=== PATIENT | female | born 1980 | race Caucasian/White ===

== ENCOUNTER 2016-09-10 22:52 | Emergency (ER) | payer MEDICARE, MEDICAID ==
[~2016-09-10] VITALS: Ht 152.4 cm; Wt 77.3 kg
[~2016-09-10 22:52] MED LIST: /MIRT15TA OR; CETI10TA OR; FOLI1TAB OR; IBUP80TA PO; MULTIVIT PO; PAXI20TA OR; PRIL20CA OR; SING10TA31 OR; VITAPRTA PO; [UNRECOGNIZED DRUG - OTHER]
[2016-09-10] MEDS ORDERED: VENL75CA47 (23:24)
[2016-09-10] MEDS ORDERED: PANT40TA2 (23:24)
[2016-09-11] MEDS ORDERED: DERMABOND TOPICAL SKIN ADHESIVE TOP ONE (01:30)
[2016-09-11] MEDS ORDERED: TETANUS/DIPHTHERIA TOX ADSORB ADULT 0.5ML SYR/VIAL (90714) IM ONE (01:30)
[2016-09-11 02:07] VITALS: BP 118/52
== END 2016-09-11 02:08 | disposition home or self-care (01) ==
LOC: M ED 09-11 00:23
DX: S61.214A Laceration without foreign body of right ring finger without damage to nail, initial encounter (principal); X58.XXXA Exposure to other specified factors, initial encounter; Y92.89 Other specified places as the place of occurrence of the external cause; Y93.89 Activity, other specified; Y99.8 Other external cause status; K21.9 Gastro-esophageal reflux disease without esophagitis; F33.9 Major depressive disorder, recurrent, unspecified; Z87.442 Personal history of urinary calculi

== ENCOUNTER → 2016-10-12 | Outpatient (CLI) | payer MEDICARE, MEDICAID ==
[~2016-10-12] MED LIST changes: +PANT40TA2; +VENL75CA47
[2016-10-12 14:43] LABS: MEAN CORPUSCULAR HEMOGLOBIN 31.3 pg (27.0-33.0); WHITE BLOOD COUNT 5.3 K/mm3 (4.0-10.0)
--- NOTE | 2016-10-12 14:44 | REP ---
Clinical: Lower back pain . Technique: AP, lateral, bilateral oblique, and coned-down views. Findings: Alignment and lordosis is maintained and stable. The vertebral bodies including transverse process and spinous processes are intact and stable. Mild compression deformity at L2 is unchanged. There is no evidence for acute fracture / compression injury or subluxation. No evidence for spondylolysis or spondylolisthesis. Impression: Stable examination. Mild old compression deformity along the superior endplate of L2 is unchanged compared to 2003. Otherwise relatively normal age appropriate examination. Signed by Galo Quinones MD 10/12/2016 02:37 P
[2016-10-12 15:17] LABS: VITAMIN B12 LEVEL 280 PG/ML (247-911)
[2016-10-12 16:06] LABS: ALBUMIN 3.9 GM/DL (3.2-5.2); ALBUMIN/GLOBULIN RATIO 1.03 (1.00-1.93); ALKALINE PHOSPHATASE 65 U/L (45-117); ALT/SGPT 15 U/L (12-78); ANION GAP 8 MEQ/L (8-16); AST/SGOT 42 U/L (15-37); BILIRUBIN,TOTAL 0.8 MG/DL (0.2-1.0); BLOOD UREA NITROGEN 12 MG/DL (7-18); CALCIUM LEVEL 8.7 MG/DL (8.5-10.1); CARBON DIOXIDE LEVEL 23 MEQ/L (21-32); CHLORIDE LEVEL 108 MEQ/L (98-107); CHOLESTEROL LEVEL 171 MG/DL (<200); CREATININE FOR GFR 0.82 MG/DL (0.55-1.02); GLOMERULAR FILTRATION RATE > 60.0 (>60); GLUCOSE, FASTING 96 MG/DL (70-105); POTASSIUM SERUM 4.1 MEQ/L (3.5-5.1); SODIUM LEVEL 139 MEQ/L (136-145); TOTAL PROTEIN 7.7 GM/DL (6.4-8.2); TRIGLYCERIDES LEVEL 62 MG/DL (<150)
== END ==
LOC: M LAB 14:03
PROVIDERS: ATTEND Nurse Practitioner Family
DX: M54.5 Low back pain (principal); E78.00 Pure hypercholesterolemia, unspecified; R53.83 Other fatigue; D64.9 Anemia, unspecified

== ENCOUNTER → 2016-11-30 | Outpatient (CLI) | payer MEDICARE, MEDICAID ==
[2016-11-30 17:39] LABS: ALBUMIN 3.6 GM/DL (3.2-5.2); ALBUMIN/GLOBULIN RATIO 0.97 (1.00-1.93); ALKALINE PHOSPHATASE 56 U/L (45-117); ALT/SGPT 11 U/L (12-78); ANION GAP 9 MEQ/L (8-16); AST/SGOT 9 U/L (15-37); BILIRUBIN,TOTAL 0.6 MG/DL (0.2-1.0); BLOOD UREA NITROGEN 7 MG/DL (7-18); CARBON DIOXIDE LEVEL 25 MEQ/L (21-32); CHLORIDE LEVEL 110 MEQ/L (98-107); CREATININE FOR GFR 0.88 MG/DL (0.55-1.02); GLOMERULAR FILTRATION RATE > 60.0 (>60); GLUCOSE, FASTING 99 MG/DL (70-105); POTASSIUM SERUM 3.9 MEQ/L (3.5-5.1); SODIUM LEVEL 144 MEQ/L (136-145); TOTAL PROTEIN 7.3 GM/DL (6.4-8.2)
[2016-11-30 17:45] LABS: VITAMIN B12 LEVEL 716 PG/ML (247-911)
[2016-11-30 18:12] LABS: MEAN CORPUSCULAR HEMOGLOBIN 31.2 pg (27.0-33.0); MEAN CORPUSCULAR HGB CONC 33.9 g/dl (32.0-36.5); MEAN CORPUSCULAR VOLUME 92.1 fl (80.0-96.0); RED CELL DISTRIBUTION WIDTH 12.6 % (11.5-14.5); WHITE BLOOD COUNT 5.9 K/mm3 (4.0-10.0)
== END ==
LOC: M LAB 16:12
PROVIDERS: ATTEND Internal Medicine Cardiovascular Disease
DX: D64.9 Anemia, unspecified (principal)

== ENCOUNTER → 2016-12-13 | Outpatient (RCR) | payer MEDICARE, MEDICAID | END | disposition home or self-care (01) | LOC: M PT 11-27 12:19 | PROVIDERS: ATTEND Nurse Practitioner Family | DX: Z51.89 Encounter for other specified aftercare (principal); M54.5 Low back pain; M54.6 Pain in thoracic spine; Z87.312 Personal history of (healed) stress fracture | CPT/HCPCS: 97110; 97140; 97161; G8978; G8979 ==

== ENCOUNTER → 2017-01-29 | Outpatient (REF) | payer MEDICARE, MEDICAID ==
[2017-01-29 14:22] LABS: BASO # 0.1 10^3/uL (0.0-0.2); BASO % 0.9 % (0.0-1.0); EOS # 0.3 10^3/uL (0.0-0.50); EOS % 5.1 % (0.0-3.0); IMMATURE GRANULOCYTE % 0.3 % (0-0); LYMPH # 2.8 10^3/uL (1.5-4.5); LYMPH % 43.9 % (24.0-44.0); MEAN CORPUSCULAR HEMOGLOBIN 30.4 pg (27.0-33.0); MEAN CORPUSCULAR HGB CONC 32.7 g/dl (32.0-36.5); MEAN CORPUSCULAR VOLUME 92.8 fl (80.0-96.0); MONO # 0.5 10^3/uL (0.0-0.8); MONO % 7.8 % (0.0-5.0); NEUTROPHILS # 2.7 10^3/uL (1.8-7.7); PLATELET COUNT, AUTOMATED 118 10^3/uL (150-450); RED CELL DISTRIBUTION WIDTH 13.2 % (11.5-14.5); WHITE BLOOD COUNT 6.4 10^3/uL (4.0-10.0)
[2017-01-29 14:50] LABS: ALBUMIN 3.7 GM/DL (3.2-5.2); ALKALINE PHOSPHATASE 57 U/L (45-117); ALT/SGPT 17 U/L (12-78); ANION GAP 10 MEQ/L (8-16); AST/SGOT 11 U/L (15-37); BILIRUBIN,TOTAL 0.6 MG/DL (0.2-1.0); BLOOD UREA NITROGEN 10 MG/DL (7-18); CALCIUM LEVEL 8.7 MG/DL (8.5-10.1); CARBON DIOXIDE LEVEL 22 MEQ/L (21-32); CHLORIDE LEVEL 108 MEQ/L (98-107); CREATININE FOR GFR 0.85 MG/DL (0.55-1.02); GLOMERULAR FILTRATION RATE > 60.0 (>60); GLUCOSE, FASTING 103 MG/DL (70-105); POTASSIUM SERUM 3.8 MEQ/L (3.5-5.1); SODIUM LEVEL 140 MEQ/L (136-145); TOTAL PROTEIN 7.4 GM/DL (6.4-8.2)
[2017-01-29 14:56] LABS: ERYTHROCYTE SEDIMENTATION RATE 34 mm/hr (0-20)
== END ==
LOC: M LABNEURO 10:26
PROVIDERS: ATTEND Psychiatry & Neurology Neurology
DX: R51 Headache (principal); Z79.899 Other long term (current) drug therapy

== ENCOUNTER 2017-05-12 20:11 | Emergency (ER) | payer MEDICARE, MEDICAID ==
[2017-05-12] MEDS: NORCO, ANEXSIA 5/325MG TABLET (HYDROcodone/ACETAMINOPHEN) PO (22:07)
[2017-05-12] MEDS: CLINDAMYCIN 150 MG CAP PO (22:07)
== END 2017-05-12 22:11 | disposition home or self-care (01) ==
LOC: M ED 20:11
DX: K04.7 Periapical abscess without sinus (principal); F41.9 Anxiety disorder, unspecified; F33.9 Major depressive disorder, recurrent, unspecified; K21.9 Gastro-esophageal reflux disease without esophagitis; M54.9 Dorsalgia, unspecified; Z79.899 Other long term (current) drug therapy; F17.210 Nicotine dependence, cigarettes, uncomplicated
CPT/HCPCS: 99282

== ENCOUNTER → 2018-06-13 | Outpatient (CLI) | payer MEDICARE, MEDICAID ==
[~2018-06-13] MED LIST changes: +CLEO300C2 PO; +NORCOTAB PO; -PANT40TA2; +PANT40TA3
[2018-06-13 11:00] LABS: BASO # 0.1 10^3/uL (0.0-0.2); BASO % 1.1 % (0.0-1.0); EOS # 0.4 10^3/uL (0.0-0.50); HEMOGLOBIN 12.8 g/dl (12.0-15.5); LYMPH # 2.5 10^3/uL (1.5-4.5); LYMPH % 36.4 % (24.0-44.0); MEAN CORPUSCULAR HEMOGLOBIN 31.2 pg (27.0-33.0); MEAN CORPUSCULAR HGB CONC 32.8 g/dl (32.0-36.5); MEAN CORPUSCULAR VOLUME 95.1 fl (80.0-96.0); MONO # 0.6 10^3/uL (0.0-0.8); MONO % 8.2 % (0.0-5.0); NEUTROPHILS # 3.4 10^3/uL (1.8-7.7); PLATELET COUNT, AUTOMATED 108 10^3/uL (150-450)
[2018-06-13 11:38] LABS: ALT/SGPT 16 U/L (12-78); BILIRUBIN,TOTAL 1.2 MG/DL (0.2-1.0); BLOOD UREA NITROGEN 13 MG/DL (7-18); CALCIUM LEVEL 8.5 MG/DL (8.5-10.1); CARBON DIOXIDE LEVEL 24 MEQ/L (21-32); CHLORIDE LEVEL 107 MEQ/L (98-107); CHOLESTEROL LEVEL 118 MG/DL (<200); CHOLESTEROL RISK RATIO 2.408 (<5); CREATININE FOR GFR 0.74 MG/DL (0.55-1.30); FREE T4 0.98 NG/DL (0.76-1.46); GLOMERULAR FILTRATION RATE > 60.0 (>60); GLUCOSE, FASTING 108 MG/DL (70-100); HDL CHOLESTEROL 49 MG/DL (>40); LDL CHOLESTEROL 51 MG/DL (<100); NON-HDL-C 69 MG/DL; SODIUM LEVEL 139 MEQ/L (136-145); TOTAL 25(OH) VITAMIN D 11.4 NG/ML (30.0-100.0); TOTAL PROTEIN 7.7 GM/DL (6.4-8.2); TRIGLYCERIDES LEVEL 88 MG/DL (<150); VITAMIN B12 LEVEL 482 PG/ML (247-911)
== END ==
LOC: M LAB 10:29
PROVIDERS: ATTEND Physician Assistant Medical
DX: R53.83 Other fatigue (principal); I10 Essential (primary) hypertension; E03.9 Hypothyroidism, unspecified; E78.2 Mixed hyperlipidemia

== ENCOUNTER 2020-01-18 20:45 | Emergency (ER) | payer MEDICARE, MEDICAID ==
[~2020-01-18] VITALS: Ht 152.4 cm; Wt 62.4 kg
[~2020-01-18 20:45] MED LIST changes: -/MIRT15TA OR; +HYDR-3715 PO; +MIRT1TAB20 OR; -NORCOTAB PO; +PANT40TA29; -PANT40TA3
[2020-01-18] MEDS ORDERED: ATOR40TA75 (20:56)
[2020-01-18] MEDS ORDERED: ZOFR4TAB16 PO (20:56)
[2020-01-18 21:34] LABS: BASO # 0.1 10^3/uL (0.0-0.2); BASO % 0.7 % (0.0-1.0); EOS # 0.1 10^3/uL (0.0-0.5); EOS % 0.7 % (0.0-3.0); HEMATOCRIT 40.9 % (36.0-47.0); HEMOGLOBIN 13.5 g/dl (12.0-15.5); LYMPH # 2.3 10^3/uL (1.5-5.0); LYMPH % 26.8 % (24.0-44.0); MEAN CORPUSCULAR HEMOGLOBIN 31.6 pg (27.0-33.0); MEAN CORPUSCULAR VOLUME 95.8 fl (80.0-96.0); MONO # 0.6 10^3/uL (0.0-0.8); MONO % 6.6 % (0.0-5.0); NEUTROPHILS # 5.6 10^3/uL (1.5-8.5); RED BLOOD COUNT 4.27 10^6/uL (4.00-5.40); WHITE BLOOD COUNT 8.6 10^3/uL (4.0-10.0)
[2020-01-18 21:35] LABS: PLATELET COUNT, AUTOMATED 97 10^3/uL (150-450)
[2020-01-18 21:58] LABS: ALBUMIN 3.8 GM/DL (3.2-5.2); ALT/SGPT 12 U/L (12-78); BILIRUBIN,DIRECT 0.2 MG/DL (0.0-0.2); BILIRUBIN,TOTAL 0.8 MG/DL (0.2-1.0); LIPASE 84 U/L (73-393); TOTAL PROTEIN 7.5 GM/DL (6.4-8.2)
[2020-01-19] MEDS ORDERED: GI COCKTAIL 50ML BTL(HYOSCYAMINE/MAALOX/LIDOCAINE VISCOUS)(1:3:1) PO ONE (00:15)
[2020-01-19 01:18] LABS: BLOOD UREA NITROGEN 6 MG/DL (7-18); CREATININE FOR GFR 0.75 MG/DL (0.55-1.30); GLOMERULAR FILTRATION RATE > 60.0 (>58)
[2020-01-19] MEDS ORDERED: ISOVUE-370 76% 100ML VIAL As Ordered ONE (02:04)
--- NOTE | 2020-01-19 03:12 | REPVR ---
PROCEDURE INFORMATION: Exam: CT Abdomen and Pelvis with Contrast Exam date and time: 01/19/20 (2:16am) Age: 39 years old Clinical indication: Generalized abdominal pain and vomiting. History of PUD. TECHNIQUE: Imaging protocol: Computed tomography of the abdomen and pelvis with intravenous contrast. Radiation optimization: All CT scans at this facility use at least one of these dose optimization techniques: automated exposure control; mA and/or kV adjustment per patient size (includes targeted exams where dose is matched to clinical indication); or iterative reconstruction. Contrast material: Isovue 370 Contrast volume: 100 ml Contrast route: IV COMPARISON: CT ABDOMEN PELVIS of 02/15/14 FINDINGS: Liver: Normal. No solid mass. Gallbladder and bile ducts: Distended gallbladder. Mildly thickened gallbladder wall. Minimal pericholecystic fluid likely. Central intrahepatic biliary dilatation. Dilated CBD (7 mm diameter). Pancreas: Normal. No ductal dilatation. Spleen: Normal. No splenomegaly. Adrenals: Normal. No mass. Kidneys and ureters: Normal. No hydronephrosis. Stomach and bowel: Unremarkable. No bowel obstruction. No mucosal thickening. Appendix: A normal appendix is visualized. Intraperitoneal space: Unremarkable. No free air. No significant fluid collection. Vasculature: Unremarkable. No abdominal aortic aneurysm. Lymph nodes: Unremarkable. No enlarged lymph nodes. Urinary bladder: Unremarkable as visualized. Reproductive: Fluid in the uterine cavity. Left ovarian cyst (2.2 cm size). Bilateral tubal ligation clips. Bones/joints: Unremarkable. No acute fracture. Soft tissues: Unremarkable. IMPRESSION: Possible acute cholecystitis. Distended gallbladder, with mildly thickened wall. Minimal pericholecystic fluid likely. Intra- and extrahepatic biliary dilatation. Needs correlation. Can do ultrasound for follow-up evaluation, as felt warranted. No acute bowel pathology. No bowel obstruction. No free air. Left ovarian cyst (2.2 cm size). Bilateral tubal ligation clips. Electronically signed by: Jenny Mo On 01/19/2020 03:11:42 AM
--- NOTE | 2020-01-19 04:36 | REPVR ---
PROCEDURE INFORMATION: Exam: US Abdomen, Limited; Right Upper Quadrant Exam date and time: 01/19/2020 4:23 AM Age: 39 years old Clinical indication: Abdominal pain; Epigastric; Additional info: Abd pain, ? choley on CT TECHNIQUE: Imaging protocol: US abdomen. Real time ultrasound with image documentation. Limited exam focused on the right upper quadrant. COMPARISON: GALLBLADDER US 02/15/2014 1:03 PM FINDINGS: Liver: Normal. No masses. Gallbladder: Multiple large mole bile gallstones are seen. The gallbladder wall is mildly thickened measuring around 4 mm. Trace pericholecystic fluid. Common bile duct: The CBD is dilated measuring up to 1.1 cm. Pancreas: The pancreatic head is unremarkable. The body and the tail of the pancreas are obscured. Right kidney: The right kidney measures 11.5 x 5.0 x 4.1 cm. There is no focal renal mass, stone, cyst or hydronephrosis. IMPRESSION: 1. Gallstones with sonographic findings suspicious for cholecystitis. 2. Dilated CBD up to 1.1 cm. Correlation with bilirubin level and MRCP is suggested. Electronically signed by: Dayne William On 01/19/2020 04:35:19 AM
[2020-01-19] MEDS ORDERED: MORPHINE 4 MG/ML 1ML VIAL/SYRINGE (J2270) IV PRN (05:00)
[2020-01-19] MEDS ORDERED: ONDANSETRON 4MG/2ML VIAL IV ONE (05:00)
[2020-01-19] MEDS ORDERED: AUGM875T28 PO (06:06)
[2020-01-19 06:15] VITALS: BP 109/64
[2020-01-19] MEDS ORDERED: AUGMENTIN 875 MG TAB PO ONE (06:15)
--- NOTE | 2020-01-20 12:40 | ED PDOC ---
Post-Departure Follow-Up gb us faxed to dr tony and [facility] for fu Leanna Black MD Jan 20, 2020 12:40
--- NOTE | 2020-01-20 12:40 | ED PDOC ---
Post-Departure Follow-Up ct abd/p faxed also to caron burnham and dr. diaz for fu Leanna Black MD Jan 20, 2020 12:40
== END 2020-01-19 06:24 | disposition home or self-care (01) ==
LOC: M ED 20:45
DX: K80.50 Calculus of bile duct without cholangitis or cholecystitis without obstruction (principal); K21.9 Gastro-esophageal reflux disease without esophagitis; K59.00 Constipation, unspecified; Z87.11 Personal history of peptic ulcer disease; Z87.442 Personal history of urinary calculi; F17.200 Nicotine dependence, unspecified, uncomplicated; Z79.899 Other long term (current) drug therapy
CPT/HCPCS: 36415; 74177; 76705; 80047; 80076; 82565; 83690; 84520; 84702; 85025; 85049; 85055; 96374; 96375; 99285; J2270; J2405; Q9967

== ENCOUNTER 2020-03-02 09:13 | Emergency (ER) | payer MEDICARE, MEDICAID ==
[~2020-03-02] VITALS: Ht 152.4 cm; Wt 62.0 kg
[~2020-03-02 09:13] MED LIST changes: +ATOR40TA75 PO; +AUGM875T28 PO; -PANT40TA29; +PANT40TA29 PO; -VENL75CA47; +VENL75CA47 PO; +ZOFR4TAB16 PO
--- NOTE | 2020-03-02 10:54 | REP ---
INDICATION: hx of cholecystitis with RUQ pain. COMPARISON: 01/19/2020. TECHNIQUE: Real-time sonographic evaluation of right upper quadrant performed. FINDINGS: Multiple gallstones are again seen in the gallbladder as well as gallbladder sludge.. The gallbladder wall is mildly thickened up to 4 mm. There is dilatation of the common bile duct 12 mm. The liver demonstrates homogeneous echotexture with no gross mass. The pancreas demonstrates homogeneous echotexture with no gross mass. The right kidney demonstrates no hydronephrosis, with a normal size of 11.6 cm in length. There is mild right renal pelviectasis.No free fluid is seen. IMPRESSION: Multiple gallstones are again seen in the gallbladder with mild gallbladder wall thickening diffusely. Dilated common bile duct again noted. The findings may indicate cholecystitis. No free fluid. <Electronically signed by Colin Estrada > 03/02/20 [id number]
[2020-03-02 11:06] LABS: BASO # 0.1 10^3/uL (0.0-0.2); BASO % 1.3 % (0.0-1.0); EOS # 0.2 10^3/uL (0.0-0.5); EOS % 3.2 % (0.0-3.0); HEMATOCRIT 39.5 % (36.0-47.0); HEMOGLOBIN 12.6 g/dl (12.0-15.5); LYMPH # 1.8 10^3/uL (1.5-5.0); LYMPH % 25.8 % (24.0-44.0); MEAN CORPUSCULAR HGB CONC 31.9 g/dl (32.0-36.5); MEAN CORPUSCULAR VOLUME 97.3 fl (80.0-96.0); MONO # 0.6 10^3/uL (0.0-0.8); MONO % 7.9 % (0.0-5.0); NEUTROPHILS # 4.3 10^3/uL (1.5-8.5); NEUTROPHILS % 61.7 % (36.0-66.0); PLATELET COUNT, AUTOMATED 88 10^3/uL (150-450); RED BLOOD COUNT 4.06 10^6/uL (4.00-5.40); WHITE BLOOD COUNT 6.9 10^3/uL (4.0-10.0)
[2020-03-02 11:35] LABS: ALBUMIN 3.8 GM/DL (3.2-5.2); ALT/SGPT 13 U/L (12-78); BILIRUBIN,DIRECT 0.1 MG/DL (0.0-0.2); BILIRUBIN,TOTAL 0.5 MG/DL (0.2-1.0); BLOOD UREA NITROGEN 8 MG/DL (7-18); CALCIUM LEVEL 8.9 MG/DL (8.5-10.1); CARBON DIOXIDE LEVEL 27 MEQ/L (21-32); CHLORIDE LEVEL 109 MEQ/L (98-107); CREATININE FOR GFR 0.76 MG/DL (0.55-1.30); GLOMERULAR FILTRATION RATE > 60.0 (>58); GLUCOSE, FASTING 93 MG/DL (70-100); LIPASE 106 U/L (73-393); POTASSIUM SERUM 3.8 MEQ/L (3.5-5.1); SODIUM LEVEL 140 MEQ/L (136-145); TOTAL PROTEIN 8.1 GM/DL (6.4-8.2)
[2020-03-02] MEDS ORDERED: NS 1,000 ML IV ONE (12:00)
[2020-03-02] MEDS ORDERED: MORPHINE 4 MG/ML 1ML VIAL/SYRINGE (J2270) IV ONE (12:00)
[2020-03-02] MEDS ORDERED: ONDANSETRON 4MG/2ML VIAL IV ONE (12:00)
[2020-03-02 13:58] VITALS: BP 98/57
--- NOTE | 2020-03-05 06:38 | ED PDOC ---
Post-Departure Follow-Up gb us faxed to dr tony and [facility] for fu Leanna Black MD Mar 05, 2020 06:38
[2020-03-08] MEDS ORDERED: MAPA500T2 PO (11:09)
[2020-03-08] MEDS ORDERED: MULTCAP PO (11:09)
[2020-03-08] MEDS ORDERED: EXCETAB44 PO (11:09)
== END 2020-03-02 14:15 | disposition home or self-care (01) ==
LOC: M ED 09:13
DX: K80.20 Calculus of gallbladder without cholecystitis without obstruction (principal); D69.6 Thrombocytopenia, unspecified; E78.5 Hyperlipidemia, unspecified; F17.210 Nicotine dependence, cigarettes, uncomplicated; Z79.899 Other long term (current) drug therapy
CPT/HCPCS: 36415; 76705; 80048; 80076; 83690; 85025; 85049; 85055; 96374; 96375; 99284; J2270; J2405

== ENCOUNTER → 2020-03-17 | Outpatient (CLI) | payer MEDICARE, MEDICAID ==
[~2020-03-17] MED LIST changes: +EXCETAB44 PO; +MAPA500T2 PO; +MULTCAP PO
== END ==
LOC: M LABSMTC 10:05
PROVIDERS: ATTEND Anesthesiology
DX: Z01.812 Encounter for preprocedural laboratory examination (principal); Z20.828 Contact with and (suspected) exposure to other viral communicable diseases

== ENCOUNTER 2020-03-22 10:43 | Day surgery (SDC) | payer MEDICARE, MEDICAID ==
[~2020-03-22] VITALS: Ht 152.4 cm; Wt 59.9 kg
[~2020-03-22 10:43] MED LIST changes: +BUPIVACAINE HCL 0.25% 30ML VIAL As Ordered ONE; +KETOROLAC 60MG 2ML VIAL As Ordered ONE; +LIDOCAINE 2% 100MG/5ML SDV (FOR ANES.) As Ordered ONE; +LR 1,000 ML IV ONE; +MIDAZOLAM INJ 2MG/2ML VIAL (J2250 PER 1MG) As Ordered ONE; +ONDANSETRON 4MG/2ML VIAL As Ordered ONE; +ROCURONIUM BROMIDE 50 MG/5 ML VIAL As Ordered ONE; +dexameTHASONE 4 MG/ML 1ML VIAL (J1100 PER 1MG) As Ordered ONE; +fentaNYL 250 MCG/5 ML INJECTION (J3010) As Ordered ONE; +propofoL 200 MG/20 ML VIAL As Ordered ONE
[2020-03-22] MEDS ORDERED: ACETAMINOPHEN 1000MG 100ML IV BTL (OFIRMEV) (J0131 PER 10MG) As Ordered ONE (12:25)
[2020-03-22] MEDS ORDERED: SUGAMMADEX SODIUM 500 MG/5 ML VIAL (BRIDION) As Ordered ONE (12:35)
[2020-03-22] MEDS ORDERED: CONRAY-60 60% 50ML VIAL (Q9961) As Ordered ONE (12:58)
[2020-03-22] MEDS ORDERED: ePHEDrine SULFATE 25 MG/5 ML(5MG/ML) SYRINGE As Ordered ONE (13:08)
[2020-03-22] MEDS ORDERED: ROCURONIUM BROMIDE 50 MG/5 ML VIAL As Ordered ONE (13:14)
--- NOTE | 2020-03-22 14:15 | REP ---
INDICATION: LAP THOMAS. COMPARISON: None. TECHNIQUE: Twelve views. 46 seconds of fluoroscopy time. FINDINGS: A sequence of 12 last image hold fluoroscopically obtained spot radiographs of the right upper quadrant taken during contrast injection through cystic duct catheter demonstrates opacification of common bile duct with contrast filling the descending duodenum. There is a variable size filling defect in the common hepatic bile duct adjacent to the and along the catheter which may reflect a retention balloon on the CT injection catheter. This filling defect is not visible on the final film. IMPRESSION: Procedural imaging. <Electronically signed by Mykel Garcia > 03/22/20 [id number]
[2020-03-22] MEDS ORDERED: propofoL 200 MG/20 ML VIAL As Ordered ONE (14:34)
[2020-03-22] MEDS ORDERED: METOCLOPRAMIDE INJ 10MG/2ML VIAL (J2765 PER 1) IV PRN (15:15)
[2020-03-22] MEDS ORDERED: LR 1,000 ML IV SCH (15:15)
[2020-03-22] MEDS ORDERED: fentaNYL 100 MCG/2 ML INJECTION (J3010) IV PRN (15:15)
[2020-03-22] MEDS ORDERED: PERCOCET 5MG/325MG TAB PO PRN (15:15)
[2020-03-22] MEDS ORDERED: ONDANSETRON 4MG/2ML VIAL IV PRN (15:15)
[2020-03-22] MEDS ORDERED: IBUPROFEN 600MG TAB PO PRN (15:30)
[2020-03-22] MEDS ORDERED: ACETAMINOPHEN 500 MG TAB PO PRN (15:30)
[2020-03-22] MEDS ORDERED: oxyCODONE 5MG TAB PO PRN (15:30)
[2020-03-22 16:45] VITALS: BP 104/62
--- NOTE | 2020-03-23 10:47 | RO ---
OPERATIVE NOTE DATE OF OPERATION: 03/22/2020 PREOPERATIVE DIAGNOSIS: Cholelithiasis with recent acute cholecystitis. POSTOPERATIVE DIAGNOSIS: Cholelithiasis with chronic cholecystitis and a dilated common bile duct with no evidence of stones by intraoperative cholangiogram. PROCEDURE PERFORMED: Laparoscopic cholecystectomy with intraoperative cholangiogram. SURGEON: Gorge Grossman MD ANESTHESIA: General. INDICATIONS FOR THE PROCEDURE: The patient is a 39-year-old woman who was seen in followup of an attack of upper abdominal pain that had taken her to the emergency department. She was found to have cholelithiasis and evidence for acute cholecystitis at that time. She was treated with antibiotics and subsequently referred to me. She is now for a laparoscopic cholecystectomy. OPERATIVE PROCEDURE: The patient was brought to the operating room and placed on the table in a supine position. She was placed under general endotracheal anesthesia. The patient's abdomen was prepped and draped in a sterile fashion. 1/4% Marcaine was infiltrated at the trocar sites as needed. A short transverse supraumbilical incision was made and a Veress needle was inserted along the midline. After a positive hanging drop test, the abdomen was insufflated with carbon dioxide. A longitudinal midline incision was made in the fascia at the site of the Veress needle insertion and an 11 mm port was placed without difficulty. The laparoscope was inserted. Initial examination showed a normal appearing liver. Visualized portions of the stomach and small and large bowel were normal. A 5 mm port was placed in the left upper quadrant and two 5 mm ports were placed in the right upper quadrant. Graspers were inserted. The patient was tilted to a reverse Trendelenburg position and rolled slightly to the left. The gallbladder was identified in the normal location. The gallbladder appeared somewhat pale yellowish and thickened. There were some filmy adhesions to the surrounding omentum. The gallbladder was grasped and elevated and the adhesions were divided using the cautery. Dissection then began at the region of the gallbladder neck. The peritoneum was incised and dissection proceeded through the pericholecystic tissues. These were somewhat thickened. It was clear during the dissection near the gallbladder neck that the common bile duct which was directly adjacent to the gallbladder neck appeared quite prominent and somewhat dilated. I would estimate this was at least a cm in diameter. With further dissection, the cholecystic artery was identified and this was doubly clipped and divided. The cystic duct was then clearly identified and dissected free. This appeared no longer than 2 cm or so from the gallbladder neck to the common bile duct. Because of the common bile duct looking distended, I elected to proceed with an intraoperative cholangiogram. The cystic duct was clipped at the gallbladder neck with a hemoclip and the cystic duct was nicked. There was return of some clear bile. A balloon cholangiogram catheter was inserted. Using fluoroscopy, intraoperative cholangiograms were obtained with the injection of 30% Conray. Injections showed that the common bile duct and common hepatic duct did appear somewhat dilated. The common bile duct appeared to have a normal tapering entry into the duodenum with no evidence of filling defects. There was filling of the intrahepatic radicles although these appeared somewhat attenuated in size. At first, there seemed to be a filling defect near the junction of the cystic duct and common bile duct but on the final image, the retention balloon of the cholangiogram catheter was deflated and this filling defect disappeared. The cholangiogram catheter was removed and the cystic duct was clipped and divided. The gallbladder was then dissected free from the gallbladder bed using cautery dissection. The gallbladder was placed in an Endopouch. The right upper quadrant was irrigated and inspected. There was no evidence of bleeding or bile leak. The patient was returned to a flat position. The abdomen was deflated and the trocars were removed. The patient had some large stones and it was necessary to extend the midline incision at the supraumbilical site. The gallbladder was removed. There was a small bleeder was identified at the level of the peritoneum in the supraumbilical site which required actually extending the skin incision slightly to expose this better and achieve control. The peritoneum was then closed with a running suture of 2-0 Vicryl. The fascia was closed with interrupted simple sutures of 1-0 Vicryl. The skin incisions were then closed with 4-0 Vicryl and Steri-Strips. The patient tolerated the procedure without apparent complication. She was awakened in the operating room, extubated and moved to the recovery room in stable condition.
== END 2020-03-22 16:45 | disposition home or self-care (01) ==
LOC: M SDC 10:43
PROVIDERS: ATTEND Surgery
DX: K80.10 Calculus of gallbladder with chronic cholecystitis without obstruction (principal); K21.9 Gastro-esophageal reflux disease without esophagitis; D64.9 Anemia, unspecified; F41.9 Anxiety disorder, unspecified; F32.9 Major depressive disorder, single episode, unspecified; Z79.899 Other long term (current) drug therapy
CPT/HCPCS: 47563; 74300; 88304; J0131; J1100; J1885; J2250; J2405; J3010; Q9961

== ENCOUNTER → 2023-04-16 | Outpatient (REF) ==
[~2023-04-16] MED LIST changes: -BUPIVACAINE HCL 0.25% 30ML VIAL As Ordered ONE; -KETOROLAC 60MG 2ML VIAL As Ordered ONE; -LIDOCAINE 2% 100MG/5ML SDV (FOR ANES.) As Ordered ONE; -LR 1,000 ML IV ONE; -MIDAZOLAM INJ 2MG/2ML VIAL (J2250 PER 1MG) As Ordered ONE; -ONDANSETRON 4MG/2ML VIAL As Ordered ONE; -ROCURONIUM BROMIDE 50 MG/5 ML VIAL As Ordered ONE; -dexameTHASONE 4 MG/ML 1ML VIAL (J1100 PER 1MG) As Ordered ONE; -fentaNYL 250 MCG/5 ML INJECTION (J3010) As Ordered ONE; -propofoL 200 MG/20 ML VIAL As Ordered ONE
== END ==
LOC: M PLAIMG 13:25
PROVIDERS: ATTEND Internal Medicine
DX: M41.86 Other forms of scoliosis, lumbar region (principal); M54.50 Low back pain, unspecified

== ENCOUNTER → 2025-01-08 | Outpatient (CLI) | payer MEDICARE, MEDICAID ==
[~2025-01-08] MED LIST changes: +ACET-1599 PO; -EXCETAB44 PO
[2025-01-08 09:57] LABS: BASO # 0.1 10^3/uL (0.0-0.2); BASO % 1.2 % (0.0-1.0); EOS # 0.2 10^3/uL (0.0-0.5); EOS % 3.2 % (0.0-3.0); LYMPH # 2.6 10^3/uL (1.5-5.0); LYMPH % 38.8 % (24.0-44.0); MONO # 0.6 10^3/uL (0.0-0.8); MONO % 8.2 % (2.0-8.0); NEUTROPHILS # 3.3 10^3/uL (1.5-8.5); NEUTROPHILS % 48.5 % (36.0-66.0); PLATELET COUNT, AUTOMATED 137 10^3/uL (150-450)
[2025-01-08 10:21] LABS: AST/SGOT 16 U/L (<34); CALCIUM LEVEL 8.3 MG/DL (8.5-10.1); CARBON DIOXIDE LEVEL 24 MMOL/L (20-31); CHLORIDE LEVEL 104 MMOL/L (98-107); CHOLESTEROL LEVEL 219 MG/DL (<200); CHOLESTEROL RISK RATIO 4.17 (<5); CREATININE FOR GFR 0.75 MG/DL (0.55-1.30); GLOMERULAR FILTRATION RATE > 90.0 (>58); LDL CHOLESTEROL 147.5 MG/DL (<100); NON-HDL-C 166.5 MG/DL; POTASSIUM SERUM 3.5 MMOL/L (3.5-5.1); SODIUM LEVEL 137 MMOL/L (136-145); TRIGLYCERIDES LEVEL 95 MG/DL (<150)
[2025-01-08 11:21] LABS: FREE T4 1.07 NG/DL (0.89-1.76)
== END ==
LOC: M LAB 08:49
DX: E78.5 Hyperlipidemia, unspecified (principal); I10 Essential (primary) hypertension; E66.9 Obesity, unspecified; R53.83 Other fatigue; Z79.899 Other long term (current) drug therapy